=== PATIENT | female | born 1940 | race Caucasian/White ===

== ENCOUNTER 2022-06-02 14:59 | Emergency (ER) | payer OTHER, BC ==
[2022-06-02 15:06] VITALS: BP 145/59; PULSE 73; RESP 18; TEMP 97; BMI 31.1
[2022-06-02] MEDS ORDERED: LIDOCAINE 5% TOPICAL PATCH TP ONE (16:07)
[2022-06-02] MEDS ORDERED: ACETAMINOPHEN 325 MG TABLET (FP) PO ONE (16:07)
[2022-06-02] MEDS ORDERED: LIDOCAINE 5% TOPICAL PATCH ONE (16:09)
[2022-06-02] MEDS ORDERED: ACETAMINOPHEN 325 MG TABLET (FP) ONE (16:10)
[2022-06-02] MEDS ORDERED: LIDOCAINE PATCH REMOVAL MC SCH (22:00)
== END 2022-06-02 16:48 | disposition home or self-care (01) ==
LOC: JERFT 14:59
DX: R07.81 Pleurodynia (principal); W20.8XXA Other cause of strike by thrown, projected or falling object, initial encounter; Y92.512 Supermarket, store or market as the place of occurrence of the external cause
CPT/HCPCS: 71045-TC-FY; 71101-TC-RT-FY; 99283-25